=== PATIENT | male | born 1955 | race Two or more races ===

== ENCOUNTER 2024-07-17 09:30 | Outpatient (REF) | payer MEDICAID, SELFPAY | END 2024-07-17 09:31 | disposition home or self-care (01) | LOC: HO.SH 09:30 | PROVIDERS: Visit Provider Registered Nurse | DX: Z13.89 Encounter for screening for other disorder (principal) ==

== ENCOUNTER 2024-08-01 10:24 | Outpatient (REF) | payer MEDICAID, SELFPAY | END 2024-08-01 10:25 | disposition home or self-care (01) | LOC: HO.SH 10:24 | PROVIDERS: Visit Provider Registered Nurse | DX: Z01.118 Encounter for examination of ears and hearing with other abnormal findings (principal) | CPT/HCPCS: 92557; 92567 ==